=== PATIENT | female | born 1955 | race Caucasian/White ===

== ENCOUNTER 2018-09-03 13:22 | Day surgery (SDC) | payer BC ==
[~2018-09-03 13:22] MED LIST: Lactated Ringers 1,000 ML IV SCH; Sodium Chloride 0.9% 10 ML Syringe FLUSH PRN; Sodium Chloride 0.9% 2.5 ML Syringe FLUSH PRN
--- NOTE | 2018-09-03 14:27 | PCM.PREANE ---
Preanesthetic Assessment - Anesthesia/Transfusion/Family Hx Anesthesia History: Prior Anesthesia Without Reaction Family History of Anesthesia Reaction: No Transfusion History: No Prior Transfusion(s) Intubation History: Unknown - Review of Systems General: No Symptoms Pulmonary: No Symptoms Cardiovascular: No Symptoms Gastrointestinal: Diarrhea Neurological: No Symptoms Other: Reports: None - Physical Assessment O2 Sat by Pulse Oximetry: 98 Respiratory Rate: 16 Vital Signs: Last Vital Signs Temp 36.8 C 09/03/18 14:14 Pulse 95 09/03/18 14:14 Resp 16 09/03/18 14:14 BP 94/67 09/03/18 14:14 Pulse Ox 98 09/03/18 14:14 Height: 1.73 m Weight: 63.503 kg ASA Class: 2 Mental Status: Alert & Oriented x3 Airway Class: Mallampati = 2 Dentition: Reports: Normal Dentition Thyro-Mental Finger Breadths: 3 Mouth Opening Finger Breadths: 2 ROM/Head Extension: Full Lungs: Clear to Auscultation, Normal Respiratory Effort Cardiovascular: Regular Rate, Regular Rhythm - Allergies Allergies/Adverse Reactions: Allergies Allergy/AdvReac Type Severity Reaction Status Date / Time Penicillins Allergy Rash Verified 08/29/18 12:28 - Blood Blood Available: No - Anesthesia Plan Pre-Op Medication Ordered: None - Acknowledgements Anesthesia Type Planned: MAC Pt an Appropriate Candidate for the Planned Anesthesia: Yes Alternatives and Risks of Anesthesia Discussed w Pt/Guardian: Yes Pt/Guardian Understands and Agrees with Anesthesia Plan: Yes PreAnesthesia Questionnaire HEENT History: Reports: Allergic Rhinitis, Cataract, Other (See Below) Other HEENT History: wears glasses, has upper permanent dental bridge Cardiovascular History: Reports: High Cholesterol Gastrointestinal History: Reports: Chronic Diarrhea, GERD Musculoskeletal History: Reports: Arthritis - Past Surgical History HEENT Surgical History: Reports: Cataract Surgery GI Surgical History: Reports: Colonoscopy (2009- normal) Musculoskeletal Surgical History: Reports: Arthroscopic Knee Other Musculoskeletal Surgeries/Procedures:: Left ACL-MCL repair - SUBSTANCE USE Smoking Status *Q: Current Every Day Smoker (5-6 cigarettes per day) Tobacco Use Within Last Twelve Months: Cigarettes Recreational Drug Use History: No - HOME MEDS Home Medications: Home Meds Fexofenadine HCl [Michelle Allergy] 180 mg PO DAILY 08/29/18 [History] Fish Oil/[place]-3 Fatty Acids [Fish Oil 1,000 MG] 1 cap PO DAILY 08/29/18 [ History] Flaxseed Oil [Flax Oil] 1,000 mg PO DAILY 08/29/18 [History] Simvastatin 20 mg PO DAILY 08/29/18 [History] - CURRENT (IN HOUSE) MEDS Current Meds: Current Medications Lactated Ringer's (Ringers, Lactated) 1,000 mls @ 125 mls/hr IV ASDIRECTED KARRIE Last Admin: 09/03/18 14:13 Dose: 125 mls/hr Sodium Chloride (Saline Flush) 10 ml FLUSH ASDIRECTED PRN PRN Reason: Keep Vein Open Sodium Chloride (Saline Flush) 2.5 ml FLUSH ASDIRECTED PRN PRN Reason: Keep Vein Open Sodium Chloride (Saline Flush) 10 ml FLUSH ASDIRECTED PRN PRN Reason: Keep Vein Open Sodium Chloride (Saline Flush) 2.5 ml FLUSH ASDIRECTED PRN PRN Reason: Keep Vein Open
[2018-09-03] MEDS ORDERED: Propofol 200 MG/20 ML SDV ONE (15:38)
[2018-09-03] MEDS ORDERED: Lidocaine 2% 5 ML SDV ONE (15:38)
[2018-09-03] MEDS ORDERED: fentaNYL 100 MCG/2 ML SDV ONE (15:39)
--- NOTE | 2018-09-03 16:38 | PCM.OPNOTE ---
- General Post-Op/Procedure Note Date of Surgery/Procedure: 09/03/18 Operative Procedure(s): Colonoscopy Findings: Normal colon Pre Op Diagnosis: Change in bowel habits Post-Op Diagnosis: normal colonoscopy Anesthesia Technique: MAC Primary Surgeon: Mariya Siu Condition: Good
--- NOTE | 2018-09-03 18:53 | OR ---
SURGEON: JULIETA SCHMID MD DATE OF PROCEDURE: 09/03/2018 PREOPERATIVE DIAGNOSIS: Change in bowel habits. POSTOPERATIVE DIAGNOSIS: Normal colonoscopy. PROCEDURE PERFORMED: Diagnostic colonoscopy. ANESTHESIA: MAC. INSTRUMENT USED: Olympus colonoscope. EXTENT OF EXAM: To the cecum. PREPARATION: Good. LIMITATIONS: None. INDICATIONS FOR EXAM: The patient is a 62-year-old female who has experienced a change in her bowel habits. We discussed the need for diagnostic colonoscopy. The patient and I discussed the procedure, expected perioperative course, and risks including bleeding, infection, damage to surrounding structures including perforation. The patient verbalized understanding and wishes to proceed. PROCEDURE IN DETAIL: The patient was brought to the endoscopy suite and placed in a left lateral decubitus position. A time-out was completed verifying the patient's name, age, date of , allergies, and procedure to be performed. Monitored anesthesia care was induced and continuous oxygen was provided via nasal cannula throughout the procedure. After adequate sedation was achieved, a digital rectal exam was performed. This exam was within normal limits. A well-lubricated colonoscope was inserted into the rectum and advanced under direct visualization to the level of cecum. The cecum was then identified by both visual and anatomic landmarks. A photograph was taken of the cecal cap as well as with the scope retroflexed within the cecum. The scope was then fully withdrawn while examining the color, texture, anatomy, and integrity of the mucosa from the cecum to the anal canal. The findings were consistent with normal colonic mucosa. The scope was then straightened out and fully withdrawn. The cecum to anus time was 6 minutes. The patient tolerated the procedure well and was transferred to the PACU in stable condition. ENDOSCOPIC DIAGNOSIS: Normal colonoscopy. RECOMMENDATIONS: I visited with the patient in the PACU. Her bowel habits have returned to normal. She can follow up in clinic in 10 years for repeat colonoscopy or sooner should she develop new symptoms. NATASHA / ANN MARIE /[id number]
== END 2018-09-03 17:05 | disposition home or self-care (01) ==
LOC: MW.SDS 13:22
PROVIDERS: ATTEND Surgery
DX: R19.7 Diarrhea, unspecified (principal); E78.5 Hyperlipidemia, unspecified; F17.210 Nicotine dependence, cigarettes, uncomplicated; R22.32 Localized swelling, mass and lump, left upper limb; M67.439 Ganglion, unspecified wrist; Z88.0 Allergy status to penicillin; Z79.899 Other long term (current) drug therapy
CPT/HCPCS: 45378; J2001; J2704; J3010; J7120

== ENCOUNTER 2021-12-13 07:22 | Day surgery (SDC) | payer BC ==
[~2021-12-13 07:22] MED LIST changes: -Sodium Chloride 0.9% 10 ML Syringe FLUSH PRN; -Sodium Chloride 0.9% 2.5 ML Syringe FLUSH PRN
[2021-12-13] MEDS ORDERED: fentaNYL 100 MCG/2 ML SDV IVPUSH PRN (08:07)
[2021-12-13] MEDS ORDERED: Ondansetron 4 MG/2 ML SDV IVPUSH PRN (08:07)
[2021-12-13] MEDS ORDERED: Naloxone 0.4 MG/ML SDV IVPUSH PRN (08:07)
[2021-12-13] MEDS ORDERED: Albuterol 0.083% 2.5 MG/3 ML Neb Soln NEB PRN (08:07)
[2021-12-13] MEDS ORDERED: Metoclopramide 10 MG/2 ML SDV IVPUSH PRN (08:07)
[2021-12-13] MEDS ORDERED: HYDROmorphone 1 MG/ML Syringe IVPUSH PRN (08:07)
[2021-12-13] MEDS ORDERED: D5W IV ONE ×2 (08:45)
[2021-12-13] MEDS ORDERED: CLINDAMYCIN PHOSPHATE IV ONE ×2 (08:45)
[2021-12-13] MEDS ORDERED: SODIUM CHLORIDE 0.9% IV ONE ×2 (08:45)
[2021-12-13] MEDS ORDERED: Clindamycin Phosphate in D5W 600 MG in Premix Bag 1 BAG IV ONE ×2 (09:45)
[2021-12-13] MEDS ORDERED: Clindamycin Phosphate in D5W 900 MG in Premix Bag 1 BAG IV ONE ×2 (09:45)
[2021-12-13] MEDS ORDERED: Propofol 200 MG/20 ML SDV ONE (09:56)
[2021-12-13] MEDS ORDERED: Bupivacaine 0.5% 30 ML SDV ONE (09:57)
[2021-12-13] MEDS ORDERED: fentaNYL 250 MCG/5 ML SDV ONE (09:57)
[2021-12-13] MEDS ORDERED: fentaNYL 100 MCG/2 ML SDV ONE (11:14)
[2021-12-13] MEDS ORDERED: HYDROmorphone 2 MG/ML Syringe ONE (12:56)
== END 2021-12-13 15:25 | disposition home or self-care (01) ==
LOC: MW.SDS 07:22
PROVIDERS: ATTEND Podiatrist Foot & Ankle Surgery
DX: M20.41 Other hammer toe(s) (acquired), right foot (principal); M77.8 Other enthesopathies, not elsewhere classified; E78.00 Pure hypercholesterolemia, unspecified; M06.9 Rheumatoid arthritis, unspecified; F17.210 Nicotine dependence, cigarettes, uncomplicated; Z88.0 Allergy status to penicillin; Z79.899 Other long term (current) drug therapy; Z98.890 Other specified postprocedural states
CPT/HCPCS: 28270; 28285; J1170; J2704; J3010; J3490; J7120; 01480; J2370

== ENCOUNTER 2023-01-04 08:44 | Day surgery (SDC) | payer MEDICARE, BC ==
[~2023-01-04 08:44] MED LIST changes: +Albuterol 0.083% 2.5 MG/3 ML Neb Soln NEB PRN; +HYDROmorphone 1 MG/ML Syringe IVPUSH PRN; -Lactated Ringers 1,000 ML IV SCH; +Metoclopramide 10 MG/2 ML SDV IVPUSH PRN; +Morphine 2 MG/ML SYRINGE IVPUSH PRN; +Naloxone 0.4 MG/ML SDV IVPUSH PRN; +Ondansetron 4 MG/2 ML SDV IVPUSH PRN; +Scopolamine 1.5 MG Transdermal Patch TOP ONE; +droPERidol 5 MG/2 ML SDV IVPUSH PRN; +fentaNYL 50 MCG/ML SDV IVPUSH PRN
[2023-01-04] MEDS ORDERED: Clindamycin Phosphate in D5W 900 MG in Premix Bag 1 BAG IV ONE ×2 (09:00)
[2023-01-04] MEDS ORDERED: Lactated Ringers 1,000 ML IV SCH (09:15)
[2023-01-04] MEDS ORDERED: Dexamethasone 4 MG/ML 5 ML MDV ONE (10:01)
[2023-01-04] MEDS ORDERED: Ondansetron 4 MG/2 ML SDV ONE (10:01)
[2023-01-04] MEDS ORDERED: Lidocaine 2% 5 ML SDV ONE (10:01)
[2023-01-04] MEDS ORDERED: fentaNYL 100 MCG/2 ML SDV ONE (10:02)
[2023-01-04] MEDS ORDERED: Propofol 200 MG/20 ML SDV ONE ×2 (10:02→10:04)
[2023-01-04] MEDS ORDERED: Bupivacaine 0.5% 30 ML SDV ONE (10:21)
[2023-01-04] MEDS ORDERED: Rocuronium Bromide 50 MG/5 ML Syringe ONE (10:34)
[2023-01-04] MEDS ORDERED: Sugammadex Sodium 200 MG/2 ML VIAL ONE (10:35)
[2023-01-04] MEDS ORDERED: Phenylephrine HCl 0.5 MG/5 ML AMP ONE (10:45)
[2023-01-04] MEDS ORDERED: ePHEDrine 50 MG/ML SDV ONE (11:19)
== END 2023-01-04 13:18 | disposition home or self-care (01) ==
LOC: MW.SDS 08:44
PROVIDERS: ATTEND Podiatrist Foot & Ankle Surgery
DX: M20.42 Other hammer toe(s) (acquired), left foot (principal); M21.612 Bunion of left foot; M06.9 Rheumatoid arthritis, unspecified; F17.210 Nicotine dependence, cigarettes, uncomplicated; M21.062 Valgus deformity, not elsewhere classified, left knee; M17.10 Unilateral primary osteoarthritis, unspecified knee; E78.00 Pure hypercholesterolemia, unspecified; E78.5 Hyperlipidemia, unspecified; M17.32 Unilateral post-traumatic osteoarthritis, left knee; Z88.0 Allergy status to penicillin; Z98.49 Cataract extraction status, unspecified eye
CPT/HCPCS: 28285; J0131; J1100; J2370; J2405; J2704; J3010; J3490; J7120

== ENCOUNTER 2025-05-06 08:21 | Observation (INO) | payer MEDICARE, BC ==
[~2025-05-06 08:21] MED LIST changes: -HYDROmorphone 1 MG/ML Syringe IVPUSH PRN; +Ketamine HCL/NACL, ISO-OSM 50 MG/5 ML Syringe ONE; -Metoclopramide 10 MG/2 ML SDV IVPUSH PRN; -Morphine 2 MG/ML SYRINGE IVPUSH PRN; +Ropivacaine 0.5% 5 MG/ML 30 ML SDV ONE; +Ropivacaine 49.25 ML, Ketorolac 30 MG, EPINEPHrine 0.5 MG, cloNIDine 80 MCG in Sodium C... INJECT SCH; -Scopolamine 1.5 MG Transdermal Patch TOP ONE; +dexmedeTOMIDine HCl 200 MCG/2 ML SDV ONE; -droPERidol 5 MG/2 ML SDV IVPUSH PRN; +propofoL 500 MG/50 ML 50 ML ONE
[2025-05-06] MEDS: Lactated Ringers 1,000 ML IV SCH (08:45)
[2025-05-06] MEDS ORDERED: fentaNYL 100 MCG/2 ML SDV ONE (08:53)
[2025-05-06] MEDS ORDERED: Ketamine HCL/NACL, ISO-OSM 50 MG/5 ML Syringe ONE (10:07)
[2025-05-06] MEDS ORDERED: Dexamethasone 4 MG/ML 5 ML MDV ONE (10:43)
[2025-05-06] MEDS ORDERED: Ondansetron 4 MG/2 ML SDV ONE (10:43)
[2025-05-06] MEDS ORDERED: Lidocaine 2% 11 ML Jelly Filled Syringe ONE (11:37)
[2025-05-06] MEDS ORDERED: Sodium Chloride 0.9% 2.5 ML Syringe FLUSH PRN (12:54)
[2025-05-06] MEDS ORDERED: Sodium Chloride 0.9% 10 ML Syringe FLUSH PRN (12:54)
[2025-05-06] MEDS ORDERED: Ondansetron 4 MG/2 ML SDV IVPUSH PRN (12:54)
[2025-05-06] MEDS: Ketorolac 30 MG/ML SDV IVPUSH SCH (14:49)
[2025-05-06] MEDS: ceFAZolin 2 GM in Water For Injection, Sterile 20 ML IVPUSH ONE (15:01)
[2025-05-06 15:12] LABS: BASOPHILS ABSOLUTE AUTO 0.06 K/uL (0.00-0.20); BASOPHILS PERCENT AUTO 0.9 % (0.0-1.0); EOSINOPHILS ABSOLUTE AUTO 0.03 K/uL (0.00-0.45); EOSINOPHILS PERCENT AUTO 0.5 % (0.0-6.0); IMMATURE GRAN ABSOLUTE AUTO 0.02 K/uL (0.00-0.05); IMMATURE GRAN PERCENT AUTO 0.3 % (0.0-0.4); LYMPHOCYTES ABSOLUTE AUTO 1.27 K/uL (1.00-4.80); LYMPHOCYTES PERCENT AUTO 20.1 % (24.0-44.0); MEAN PLATELET VOLUME 9.4 fL (9.4-12.3); MONOCYTES ABSOLUTE AUTO 0.10 K/uL (0.00-0.80); MONOCYTES PERCENT AUTO 1.6 % (0.0-8.0); NEUTROPHILS ABSOLUTE AUTO 4.84 K/uL (1.80-7.70); NEUTROPHILS PERCENT AUTO 76.6 % (41.0-71.0); NRBC ABSOLUTE 0.00 K/uL (0.00-0.02); NRBC PERCENT 0.0 /100WBC (0.0-0.2); PLATELET COUNT,PLT 265 K/uL (150-400); RED BLOOD CELL COUNT 3.69 M/uL (4.10-5.30); WHITE BLOOD CELL COUNT,WBC 6.32 K/uL (3.9-11.3)
[2025-05-06 17:01] LABS: BLOOD UREA NITROGEN,BUN 12.0 mg/dL (7.0-18.0); CARBON DIOXIDE,CO2 22.4 mmol/L (21.0-32.0); CHLORIDE,CL 107.0 mmol/L (98-107); CREATININE 0.8 mg/dL (0.6-1.0); EST CRCL DRUG DOSING (CG) 68.16 mL/min; GLUCOSE RANDOM 117.0 mg/dL (74-106); POTASSIUM,K 4.1 mmol/L (3.5-5.1); SODIUM,NA 141.0 mmol/L (136-145)
[2025-05-06 17:02] LABS: ESTIMATED GFR 80.0 mL/min (>60)
[2025-05-06] MEDS: ceFAZolin 2 GM in Water For Injection, Sterile 20 ML IVPUSH SCH (18:01)
[2025-05-07 05:59] LABS: BLOOD UREA NITROGEN,BUN 15.0 mg/dL (7.0-18.0); CARBON DIOXIDE,CO2 22.6 mmol/L (21.0-32.0); CHLORIDE,CL 107.0 mmol/L (98-107); CREATININE 0.8 mg/dL (0.6-1.0); EST CRCL DRUG DOSING (CG) 68.16 mL/min; GLUCOSE RANDOM 115.0 mg/dL (74-106); POTASSIUM,K 3.8 mmol/L (3.5-5.1); SODIUM,NA 141.0 mmol/L (136-145)
[2025-05-07 06:01] LABS: ESTIMATED GFR 80.0 mL/min (>60)
[2025-05-07] MEDS: Magnesium Sulfate 2 GM/50 mL 2 GM in Premix Bag 1 BAG IV ONE (09:13)
== END 2025-05-07 12:35 | disposition home or self-care (01) ==
LOC: MW.SDS 08:21 → MW.MS 14:43
PROVIDERS: ADMIT Orthopaedic Surgery; ATTEND Orthopaedic Surgery
DX: M17.32 Unilateral post-traumatic osteoarthritis, left knee (principal); E78.00 Pure hypercholesterolemia, unspecified; K21.9 Gastro-esophageal reflux disease without esophagitis; Z88.0 Allergy status to penicillin; Z79.899 Other long term (current) drug therapy
CPT/HCPCS: 0055T; 20680; 27447; 36415; 73560; 80048; 83735; 85014; 85018; 85025; 86850; 86900; 86901; 97110; 97116; 97161; A4216; A9270; C1776; J0166; J0690; J0735; J1100; J1308; J1885; J2003; J2704; J2795; J3010; J3475; J7120; 01402; 64417; 99221; J2405; J3490